=== PATIENT | male | born 1980 | race Two or more races ===

== ENCOUNTER 2018-10-29 18:11 | Emergency (ER) | payer OTHER ==
[~2018-10-29] VITALS: Ht 172.7 cm; Wt 64.5 kg
[2018-10-29 18:29] VITALS: BP 125/78; Ht 172.7 cm; Wt 64.5 kg
== END 2018-10-29 19:49 | disposition home or self-care (01) ==
LOC: ED 18:11
DX: S16.1XXA Strain of muscle, fascia and tendon at neck level, initial encounter (principal); R51 Headache; V43.52XA Car driver injured in collision with other type car in traffic accident, initial encounter; Y93.I9 Activity, other involving external motion; Y92.488 Other paved roadways as the place of occurrence of the external cause; Y99.8 Other external cause status